=== PATIENT | male | born 1985 | race African-American/Black ===

== ENCOUNTER 2017-05-15 18:08 | Emergency (ER) | payer MEDICAID ==
[~2017-05-15] VITALS: Ht 185.4 cm; Wt 87.0 kg
[2017-05-15 18:12] VITALS: BP 125/74
== END 2017-05-15 22:57 | disposition left against medical advice (07) ==
LOC: ER 19:34
DX: Z53.21 Procedure and treatment not carried out due to patient leaving prior to being seen by health care provider (principal)

== ENCOUNTER 2017-05-17 18:29 | Emergency (ER) | payer MEDICAID ==
[~2017-05-17] VITALS: Ht 185.4 cm; Wt 84.0 kg
[2017-05-17 19:40] VITALS: BP 147/83
== END 2017-05-17 21:30 | disposition home or self-care (01) ==
LOC: ER 21:08
DX: R22.9 Localized swelling, mass and lump, unspecified (principal); F17.200 Nicotine dependence, unspecified, uncomplicated; F12.10 Cannabis abuse, uncomplicated; Z88.0 Allergy status to penicillin
CPT/HCPCS: 99283

== ENCOUNTER 2017-07-19 14:19 | Emergency (ER) | payer MEDICAID ==
[~2017-07-19] VITALS: Ht 185.4 cm; Wt 86.0 kg
[2017-07-19 14:23] VITALS: BP 135/78
[2017-07-19] MEDS ORDERED: IBUP-1653 PO (14:27)
== END 2017-07-19 20:00 | disposition left against medical advice (07) ==
LOC: ER 15:39
DX: R06.02 Shortness of breath (principal); Z53.21 Procedure and treatment not carried out due to patient leaving prior to being seen by health care provider

== ENCOUNTER 2017-07-21 05:48 | Emergency (ER) | payer MEDICAID ==
[~2017-07-21] VITALS: Ht 185.4 cm; Wt 86.0 kg
[~2017-07-21 05:48] MED LIST: IBUP-1653 PO
[2017-07-21] MEDS ORDERED: ONDANSETRON HCL 4MG/2ML VIAL IV STA (10:02)
[2017-07-21] MEDS ORDERED: ALBUTEROL (0.083%) 2.5MG/3ML NEB HHN STA (10:02)
[2017-07-21] MEDS ORDERED: KETOROLAC 30MG/ML VIAL IV STA (10:02)
[2017-07-21] MEDS ORDERED: SODIUM CHLORIDE 0.9% 1,000 ML IV ONE (10:02)
[2017-07-21] MEDS ORDERED: IPRATROPIUM BROMIDE (0.02%) 0.5MG/2.5ML NEB HHN STA (10:02)
[2017-07-21 10:37] LABS: BASOPHILS % 0.5 % (0.0-2.0); HEMATOCRIT. 43.1 % (42.0-52.0); HEMOGLOBIN. 14.3 g/dL (14.0-18.0); LYMPHOCYTES % 12.2 % (20.0-50.0); MEAN CORPUSCULAR HEMOGLOBIN 26.6 pg (28.0-32.0); MEAN CORPUSCULAR VOLUME 80.2 fL (80.0-94.0); MEAN PLATELET VOLUME 9.7 fl (7.4-10.4); MONOCYTES % 8.6 % (2.0-8.0); NEUTROPHILS % 78.7 % (40.0-76.0); PLATELET 151 x1000/uL (130-400); RED BLOOD CELL COUNT 5.37 mill/uL (4.7-6.1); RED CELL DISTRIBUTION WIDTH 13.6 % (11.6-14.6)
[2017-07-21 10:49] LABS: CARBON DIOXIDE 27 mEq/L (21-32); CHLORIDE 103 mEq/L (98-107); ETHANOL BLOOD < 10 mg/dL
[2017-07-21 11:37] LABS: CLARITY URINE CLEAR (CLEAR); COLOR URINE YELLOW (YELLOW); KETONES URINE 1+ (NEGATIVE); LEUKOCYTE ESTERASE URINE NEGATIVE (NEGATIVE); NITRITE URINE NEGATIVE (NEGATIVE); OCCULT BLOOD URINE NEGATIVE (NEGATIVE); PH URINE 5.5 (4.5-8.0); PROTEIN URINE 2+ (NEGATIVE); SPECIFIC GRAVITY URINE 1.022 (1.005-1.030)
[2017-07-21 12:08] LABS: *AMPHETAMINES SCREEN URINE NEGATIVE (NEGATIVE); *BARBITURATES SCREEN URINE NEGATIVE (NEGATIVE); *BENZODIAZEPINES SCREEN URINE NEGATIVE (NEGATIVE); *COCAINE SCREEN URINE NEGATIVE (NEGATIVE); CANNABINOID URINE SCREEN PRESUMTIVE POSITIVE (NEGATIVE); METHADONE URINE SCREEN NEGATIVE (NEGATIVE); OPIATES URINE SCREEN NEGATIVE (NEGATIVE); PHENCYCLIDINE URINE SCREEN NEGATIVE (NEGATIVE)
[2017-07-21 15:56] VITALS: BP 141/76
== END 2017-07-21 16:01 | disposition home or self-care (01) ==
LOC: ER 07:33
DX: J45.909 Unspecified asthma, uncomplicated (principal); J39.9 Disease of upper respiratory tract, unspecified; F12.10 Cannabis abuse, uncomplicated; R11.10 Vomiting, unspecified; Z88.0 Allergy status to penicillin
CPT/HCPCS: 36415; 71045; 80053; 80305; 81001; 83690; 85025; 94640; 96361; 96374; 96375; 99285; G0482; J1885; J2405; J7030; J7611; Z7610